=== PATIENT | male | born 2005 | race Two or more races ===

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

== ENCOUNTER 2023-10-30 20:26 | Emergency (ER) | payer MEDICAID, SELFPAY ==
[2023-10-30 20:45] VITALS: BP 124/59; PULSE 67; RESP 14; TEMP 36.8; O2SAT 97; BMI 19.8
[2023-10-30 21:34] LABS: Influenza A PCR NEGATIVE (Negative); Influenza B PCR NEGATIVE (Negative); Resp Syncy Virus RNA Qual PCR NEGATIVE (Negative); SARS COV2 PCR INHOUSE NEGATIVE (Negative)
[2023-10-30 23:06] VITALS: BP 121/72; PULSE 74; RESP 16; TEMP 36.7; O2SAT 96
--- NOTE | 2023-10-30 23:15 | ED.GENADULT ---
HPI - General Adult General Chief complaint: General Medical Stated complaint: Jaw pain Time Seen by Provider: 10/30/23 22:35 Source: patient Mode of arrival: ambulatory Limitations: no limitations History of Present Illness HPI narrative: 18 yo male with PMH of thyroid disease here with 3 days of L sided neck and jaw pain with lump felt. He denies fevers. He reports some pain under the tongue as well. He has no sick contacts. He does note his son has a cold MD complaint: neck bump Onset (ago): day(s) (3) Location: neck Radiation: non-radiation Severity: moderate Quality: aching Pain Consistency: constant Relieving factors: none Exacerbating factors: other (palptation and swallowing) Associated symptoms: other (tongue pain, overall malaise) Treatments prior to arrival: none Related Data Previous Rx's ?Medication ?Instructions ?Recorded methimazole 10 mg tablet 20 mg (2 x 10 mg) PO DAILY #20 tabs 04/16/21 ondansetron 4 mg disintegrating 4 mg PO Q6-8H PRN nausea and 01/17/22 tablet vomiting #14 tabs erythromycin 5 mg/gram (0.5 %) eye 0.5 inch ophthalmic (eye) Q4H #3.5 10/31/22 ointment grams amoxicillin 875 mg-potassium 1 tab PO BID 10 days #20 tabs 10/30/23 clavulanate 125 mg tablet Allergies Allergy/AdvReac Type Severity Reaction Status Date / Time No Known Allergies Allergy Verified 10/30/23 20:48 Review of Systems Review of Systems: Constitutional : No Fever, No Chills, No Fatigue, pos malaise ENT/Mouth : No sore throat, No Rhinorrhea Eyes: No Eye Pain, No Swelling, No Redness Cardiovascular : No Chest Pain, No SOB, No Dyspnea on Exertion Respiratory : No Cough, No Sputum Gastrointestinal : No Nausea, No Vomiting, No Diarrhea, No abdominal Pain Genitourinary : No Dysuria, No Urinary Frequency, No Hematuria, Musculoskeletal : No joint pain, No Myalgias, No Joint Swelling Skin : No Skin Lesions, No rash Neuro : No Weakness, No Numbness, No Dizziness, no Headache Psych : No Anxiety/Panic, No Depression Heme/Lymph: No Bruising, No Bleeding, pos Lymphadenopathy Endocrine : No Polyuria, No Polydipsia All other systems reviewed and are negative PMFSH Past Medical History Attestation statement: The following information was validated with the patient. Source: old records reviewed Medical History Hyperthyroidism Social History Social History Unable to assess alcohol history related to: Unknown Patient Tobacco Use Status: Never used Tobacco Smoked in Last 30 Days: No Use of substances other than those prescribed or required for medical reasons: Yes Substance Use Type: Marijuana Advance Directives: No Advance Directives Information Provided: No Physical Exam ED Vital Signs: Vital Signs - 24 hr 10/30/23 20:45 10/30/23 23:06 Temperature 98.3 F 98.1 F Pulse Rate 67 74 Respiratory Rate 14 16 Blood Pressure 124/59 L 121/72 Pulse Oximetry 97 96 Oxygen Delivery Method Room Air Room Air BMI result Body Mass Index 19.8 Appearance: Alert. Oriented X3. No acute distress. Eyes: Pupils equal, round and reactive to light. ENT: no exudates or swelling normal posterior pharynx tongue is normal no elevation, reports ttp under tongue but there is no abnormality, poor dentition, normal parotid area Neck: L submandibular area mild swelling no erythema no warmth does not go along to the neck isolated to submandibular space CVS: Normal heart rate and rhythm. Pulses normal. Respiratory: No respiratory distress. Breath sounds normal. Abdomen: Soft and nontender. Skin: Skin warm and dry. Normal skin color. Normal skin turgor. Extremities: No lower extremity edema. No calf ttp Neuro: Oriented X 3. No motor deficit. No sensory deficit. Medical Decision Making Medical Decision Making [facility] Narrative: 18 yo male with hyperthyroidism here with isolated submandibular swelling no swelling near hyoid or thyroid - he has normal pharyngeal exam no swelling or mass at this time TMs are normal no airway issues will instruct him to suck on sour candies and start on augmentin with clear instructions to return. not toxic it does not involve the carotid sheath area and no signs of suzy. Differential Diagnosis Differential Diagnoses: The differential diagnosis associated with the presentation includes lymphadenitis, sialodenitis Admission/Observation Consideration of admission/observation: Escalation of care including admission/observation considered no airway issues, not toxic, stable for DC Lab Data [facility] Lab Attestation statement: I reviewed the patient's lab results. Labs: Lab Results 10/30/23 Range/Units 20:53 Influenza Type A (PCR) NEGATIVE (Negative) Influenza Type B (PCR) NEGATIVE (Negative) RSV RNA Qual (PCR) NEGATIVE (Negative) SARS-CoV-2 RNA (RT-PCR) NEGATIVE (Negative) Independent Historian Clinical information obtained from an independent historian. History obtained from or confirmed by: Spouse External Record Review External record reviewed: Office record Prescription Management I considered prescription management with: Antibiotic Discharge Plan Discharge Clinical Impression: Acute lymphadenitis Patient Disposition: Home, Self-Care Instructions: Adenitis (ED) Additional Instructions: suck on sour candies if not better in 24 hours or improving return. return for worsening swelling, severe pain, difficulty swallowing or any other concerns. Prescriptions: New amoxicillin-pot clavulanate 875-125 mg tablet 1 tab PO BID 10 Days Qty: 20 0RF No Action methimazole 10 mg tablet 20 mg PO DAILY Qty: 20 0RF ondansetron 4 mg tablet,disintegrating 4 mg PO Q6-8H PRN (Reason: nausea and vomiting) Qty: 14 0RF erythromycin 5 mg/gram (0.5 %) ointment 0.5 inch ophthalmic (eye) Q4H Qty: 3.5 0RF Print Language: Georgian
[2023-10-30] MEDS: Amoxicillin/Potassium Clav 875 MG TABLET PO (23:46)
[2023-10-30 23:48] VITALS: BP 121/72; PULSE 74; RESP 16; TEMP 36.7
== END 2023-10-30 23:49 | disposition home or self-care (01) ==
PROVIDERS: Emergency Provider Emergency Medicine
DX: L04.0 Acute lymphadenitis of face, head and neck (principal)
CPT/HCPCS: 0241U; 99283; 99284